=== PATIENT | female | born 1990 | race Caucasian/White ===

== ENCOUNTER 2019-09-23 09:02 | Outpatient (CLI) | payer OTHER | END 2019-09-23 09:26 | disposition home or self-care (01) | LOC: MAMO-SONO 09:02 | DX: N60.11 Diffuse cystic mastopathy of right breast (principal); N60.12 Diffuse cystic mastopathy of left breast ==

== ENCOUNTER 2023-06-06 08:46 | Emergency (ER) | payer OTHER ==
[~2023-06-06] VITALS: Ht 162.6 cm; Wt 49.9 kg
[2023-06-06 09:55] LABS: PH,URINE 5.5 (5.0-8.0); URINE APPEARANCE Clear; URINE BACTERIA 110.8 uL (0.0-1933); URINE BILIRRUBIN Negative (NEGATIVE); URINE BLOOD Negative; URINE COLOR Dark Yellow; URINE GLUCOSE Negative (NEGATIVE); URINE LEUKOCYTE Small; URINE NITRATE Negative; URINE PROTEIN Trace (NEGATIVE); URINE RBC 8.6 uL (0.0-20.8); URINE WBC 34.9 uL (0.0-23.2)
[2023-06-06] MEDS ORDERED: METRONIDAZOLE500 MG PO (10:22)
[2023-06-06] MEDS ORDERED: FLUCONAZOLE150 MG PO (10:22)
== END 2023-06-06 10:37 | disposition home or self-care (01) ==
LOC: ER 08:46
PROVIDERS: General Practice
DX: N39.0 Urinary tract infection, site not specified (principal); Z88.0 Allergy status to penicillin; Z88.1 Allergy status to other antibiotic agents